=== PATIENT | female | born 1995 | race Caucasian/White ===

== ENCOUNTER 2017-04-13 03:45 | Emergency (ER) | payer BC ==
[~2017-04-13] VITALS: Ht 162.6 cm; Wt 65.8 kg
[~2017-04-13 03:45] MED LIST: CEFD125S23 PO; ETHI1TAB20 PO; OMEP40CA48 PO
[2017-04-13] MEDS ORDERED: AZIT-1 PO (03:54)
--- NOTE | 2017-04-13 04:16 | ER Report ---
History and Physical Time Seen By MD: 03:45 Hx. of Stated Complaint: CHEST PAIN X 1 HOUR HPI/ROS CHIEF COMPLAINT: Chest pain HISTORY OF PRESENT ILLNESS: 21-year-old female with history of GERD presents with chest pain onset approximately 1 hour prior to arrival to feel somewhat similar to to her prior GERD except that "this time it's way worse". Acute onset occurred after laying flat after eating sausage with cheese and drinking root beer. Worsened by laying down. Improved sitting up. Substernal crushing " radiating to the back and nonexertional not provoked by deep inspirations or walking. She tried maalox for this at home. No fevers chills nausea or vomiting. REVIEW OF SYSTEMS: Constitutional: No fever, no chills. Eyes: No discharge. ENT: No sore throat. Cardiovascular: No cardiac chest pain, no palpitations. Respiratory: No cough, no shortness of breath. Gastrointestinal: No abdominal pain, no vomiting. Genitourinary: No hematuria. Musculoskeletal: No back pain. Skin: No rashes. Neurological: No headache. Allergies: Coded Allergies: No Known Drug Allergies (Unverified , 04/13/17) Home Meds Reported Medications Azithromycin (ZITHROMAX) 250 Mg Tablet, 1 TAB PO QDAY, TAB 04/13/17 Omeprazole (OMEPRAZOLE) 40 Mg Capsule.dr, 40 MG PO QDAY, CAP 01/01/17 Ethinyl Estradiol/Drospirenone (OCELLA 3 MG-0.03 MG TABLET) 1 Each Tablet, 1 EACH PO 01/01/17 Discontinued Reported Medications Cefdinir (OMNICEF 125 MG/5 ML SUSP) 125 Mg/5 Ml Susp.recon, 300 MG PO BID, BOT 01/01/17 Hx Smoking: No Smoking Status: Never Smoker Hx Substance Use Disorder: No Hx Alcohol Use: No Constitutional Vital Sign - Last 24 Hours 04/13/17 04/13/17 04/13/17 04/13/17 03:50 03:50 04:00 04:16 Temp 98.2 Pulse 85 Resp 16 B/P (MAP) 146/100 (115) 146/100 144/92 (109) 123/81 (95) Pulse Ox 97 98 O2 Delivery Room Air Physical Exam General Appearance: The patient is alert, has no immediate need for airway protection and no signs of toxicity. Well-appearing Eyes: Pupils equal and round no pallor or injection. ENT, Mouth: Mucous membranes are moist. Respiratory: There are no retractions, lungs are clear to auscultation. Cardiovascular: Regular rate and rhythm. No murmurs gallops or rubs Gastrointestinal: Abdomen is soft and non tender, no masses, bowel sounds normal. Neurological: Normal neuro exam Skin: Warm and dry, no rashes. Musculoskeletal: Neck is supple non tender. Extremities are nontender, nonswollen and have full range of motion. No edema DIFFERENTIAL DIAGNOSIS: After history and physical exam differential diagnosis was considered for GERD, pneumonia, pneumothorax, acute coronary syndrome, PE this is an incomplete list of diagnoses considered Medical Decision Making EKG/Imaging EKG Interpretation An EKG was performed at 04/13/2017 at 03 50 2 AM and read by me normal sinus rhythm with a rate of 85 normal OK QRS and QTc intervals R's R prime pattern suggestive of right ventricular conduction delay possible right bundle-branch block. No ST or T-wave changes to suggest ischemia or infarction. Comparison was made January 01 EKG 2016 Imaging Chest x-ray to PA and lateral views were obtained images reviewed and results discussed with the patient. my read: No acute process ED Course/Re-evaluation ED Course Improved with the ED therapy. All results reviewed and results discussed with the patient. Decision to Disposition Date: Apr 13, 2017 Decision to Disposition Time: 06:23 Depart Departure Latest Vital Signs Vital Signs Date Time Temp Pulse Resp B/P (MAP) Pulse Ox O2 Delivery O2 Flow Rate FiO2 04/13/17 04:16 123/81 (95) 04/13/17 04:00 98 04/13/17 03:50 98.2 85 16 Room Air Impression: Primary Impression: Chest pain Condition: Improved Disposition: HOME OR SELF-CARE New Scripts Sucralfate (CARAFATE) 1 Gm Tablet 1 GM PO BID Y for PAIN for 10 Days, #20 EA Prov: MARK AMAYA MD 04/13/17 Famotidine (FAMOTIDINE) 20 Mg Tablet 20 MG PO QDAY for 10 Days, #20 TAB Prov: MARK AMAYA MD 04/13/17 Patient Instructions: Gastroesophageal Reflux Disease (ED) Problem Qualifiers Primary Impression: Chest pain Chest pain type: unspecified Qualified Codes: R07.9 - Chest pain, unspecified MARK AMAYA MD Apr 13, 2017 04:16
[2017-04-13] MEDS ORDERED: FAMOTIDINE(*) 20MG/50ML PREMIX 50 ML IVPB ONE (04:30)
[2017-04-13] MEDS ORDERED: MAG HYD/AL HYD/SIMETH 30ML UDC PO ONE (04:30)
[2017-04-13] MEDS ORDERED: ATRO/SCOPOL/HYOSCY/PB 5 ML ELX PO ONE (04:30)
[2017-04-13] MEDS ORDERED: LIDOCAINE 2% VISC SLN 15ML UDC PO ONE (04:30)
--- NOTE | 2017-04-13 04:34 | RADIOLOGY IMAGING REPORT ---
FACILITY: [facility] [place] PATIENT NAME: Julia Cassidy : 1995 MR: [id number] V: [id number] EXAM DATE: ORDERING PHYSICIAN: MARK AMAYA TECHNOLOGIST: Location: [facility] Patient: Julia Cassidy : 1995 Visit/Account:[id number] Date of Sevice: 04/13/2017 CHEST PA AND LAT HISTORY: Central chest and upper abdominal pain for several hours. COMPARISON: None. TECHNIQUE: PA and lateral views of the chest. FINDINGS: Pulmonary: Lungs are clear. There is no pneumothorax or pleural effusion. Cardiomediastinal: Cardiac and mediastinal silhouettes are within normal limits. Bones/soft tissues: No acute osseous abnormality. The visible abdomen is normal. IMPRESSION: 1. No acute cardiopulmonary process. Report Dictated By: Janessa Denton at 04/13/2017 4:29 AM Report E-Signed By: Janessa Denton at 04/13/2017 4:30 AM WSN:[id number]
[2017-04-13] MEDS: MORPHINE 4 MG/ML SYR IVP ONE (04:50)
[2017-04-13] MEDS ORDERED: ONDANSETRON 4 MG/2 ML VIAL IVP ONE (04:50)
[2017-04-13] MEDS ORDERED: MORPHINE 2 MG/ML SYR ONE (04:52)
[2017-04-13 05:00] VITALS: BP 130/86
[2017-04-13] MEDS ORDERED: KETOROLAC 15 MG/ML VIAL IVP ONE (05:30)
[2017-04-13] MEDS ORDERED: NS(*) 0.9% 1000 ML BAG 1,000 ML IV ONE (05:40)
[2017-04-13 06:01] LABS: PLATELET COUNT, AUTOMATED 276 K/uL (150-450)
--- NOTE | 2017-04-13 06:20 | EKG ---
FACILITY: [facility] - [place] PATIENT NAME: ZITA RUTH : [id number] MR: [id number] V: [id number] EXAM DATE: ORDERING PHYSICIAN: MARK AMAYA TECHNOLOGIST: REID Test Reason : CHEST PAIN Blood Pressure : / mmHG Vent. Rate : 085 BPM Atrial Rate : 085 BPM P-R Int : 126 ms QRS Dur : 100 ms QT Int : 396 ms P-R-T Axes : 071 076 056 degrees QTc Int : 471 ms Normal sinus rhythm RSR' or QR pattern in V1 suggests right ventricular conduction delay Borderline ECG When compared with ECG of 01-JAN-2017 02:12, No significant change was found Confirmed by AKANKSHA CASE ([id number]) on 04/15/2017 2:56:32 PM Referred By: Confirmed By:AKANKSHA CASE
[2017-04-13] MEDS ORDERED: SUCR1TAB85 PO (06:25)
[2017-04-13] MEDS ORDERED: FAMO-67 PO (06:25)
== END 2017-04-13 06:36 | disposition home or self-care (01) ==
LOC: ER 03:48
DX: R07.89 Other chest pain (principal)
CPT/HCPCS: 71020; 84484; 85025; 93005; 99284; J1885; J2270; J2405; J3490; J7030; 82310; 82374; 82435; 82565; 82947; 84132; 84295; 84520